=== PATIENT | male | born 1970 | race Caucasian/White ===

== ENCOUNTER → 2024-11-05 08:20 | Outpatient (CLI) | payer BC, SELFPAY | PROVIDERS: PCP Podiatrist; Referring Provider Podiatrist; Visit Provider Surgery | DX: E11.621 Type 2 diabetes mellitus with foot ulcer (principal); L97.522 Non-pressure chronic ulcer of other part of left foot with fat layer exposed; E11.42 Type 2 diabetes mellitus with diabetic polyneuropathy; L84 Corns and callosities; L53.8 Other specified erythematous conditions | CPT/HCPCS: 11042; 87070; 87075; 87205; 99203; 99214 ==

== ENCOUNTER → 2024-11-05 10:11 | Outpatient (CLI) | payer BC, SELFPAY ==
--- NOTE | 2024-11-05 10:15 | DI.RAD.S_ITS ---
PROCEDURE: XR FOOT LT MIN 3V INDICATIONS: Eval for osteo TECHNIQUE: 3 views of the foot were acquired. COMPARISON: None. FINDINGS AND IMPRESSION: No acute displaced fracture or definite radiographic erosions. If there is high concern for further derangement, consider MRI evaluation. Incidentally noted [id number] degenerative changes throughout the forefoot, midfoot, and hindfoot. Moderate plantar calcaneal enthesopathy. Large Steida process. Scattered 5th metatarsal base and navicular enthesopathy also present. Soft tissue swelling is seen. No suspicious soft tissue calcifications. Dictated by: Casper Manuel M.D. on 11/05/2024 at 15:04 Approved by: Casper Manuel M.D. on 11/05/2024 at 15:06
[2024-11-05 10:55] LABS: Hemoglobin A1C% w Est Avg Glu 8.7 % (4.0-6.0)
[2024-11-05 11:04] LABS: Alanine Aminotransferase 27 IU/L (<50); Albumin 4.3 g/dL (3.5-5.0); Albumin Globulin Ratio 1.3 (1.0-2.8); Alkaline Phosphatase 85 U/L (38-126); Aspartate Aminotransferase 26 IU/L (17-59); BUN Creatinine Ratio 19.5 (6-22); Bilirubin Total 0.4 mg/dL (0.2-1.3); Blood Urea Nitrogen 17 mg/dL (9-20); C-Reactive Protein Quant 1.1 mg/dL (<1.0); Calcium 9.2 mg/dL (8.4-10.2); Carbon Dioxide 22 mmol/L (22-32); Chloride 103 mmol/L (98-107); Estimated Glomerular Filt Rate > 60 mL/min (>60); Globulin 3.4 g/dL (1.7-4.1); Glucose 344 mg/dL (70-100); HEMOLYSIS < 15 (0-50); Potassium 4.5 mmol/L (3.4-5.1); Sodium 138 mmol/L (137-145); Total Protein 7.7 g/dL (6.3-8.2)
[2024-11-05 11:32] LABS: Erythrocyte Sedimentation Rate 43 MM/HR (0-15)
== END ==
PROVIDERS: Surgery; PCP Podiatrist; Referring Provider Family Medicine Addiction Medicine; Visit Provider Family Medicine Addiction Medicine
DX: E11.621 Type 2 diabetes mellitus with foot ulcer (principal); L97.522 Non-pressure chronic ulcer of other part of left foot with fat layer exposed; E11.42 Type 2 diabetes mellitus with diabetic polyneuropathy; M79.89 Other specified soft tissue disorders; M77.32 Calcaneal spur, left foot; L84 Corns and callosities; L53.8 Other specified erythematous conditions
CPT/HCPCS: 11042; 36415; 73630; 80053; 83036; 85651; 86140; 87070; 87205; 99214

== ENCOUNTER → 2024-11-12 11:38 | Outpatient (CLI) | payer BC, SELFPAY | PROVIDERS: PCP Podiatrist; Referring Provider Podiatrist; Visit Provider Surgery | DX: E11.621 Type 2 diabetes mellitus with foot ulcer (principal); L97.522 Non-pressure chronic ulcer of other part of left foot with fat layer exposed; L97.512 Non-pressure chronic ulcer of other part of right foot with fat layer exposed; E11.42 Type 2 diabetes mellitus with diabetic polyneuropathy; L84 Corns and callosities; L53.8 Other specified erythematous conditions; R23.4 Changes in skin texture | CPT/HCPCS: 11042 ==

== ENCOUNTER → 2024-11-14 15:41 | Outpatient (CLI) | payer BC, SELFPAY | PROVIDERS: PCP Podiatrist; Referring Provider Podiatrist; Visit Provider Surgery | DX: E11.621 Type 2 diabetes mellitus with foot ulcer (principal); L97.522 Non-pressure chronic ulcer of other part of left foot with fat layer exposed; L97.512 Non-pressure chronic ulcer of other part of right foot with fat layer exposed; L84 Corns and callosities; L53.8 Other specified erythematous conditions; R23.4 Changes in skin texture | CPT/HCPCS: 99213 ==

== ENCOUNTER → 2024-11-19 11:13 | Outpatient (CLI) | payer BC, SELFPAY | PROVIDERS: PCP Podiatrist; Referring Provider Podiatrist; Visit Provider Surgery | DX: E11.621 Type 2 diabetes mellitus with foot ulcer (principal); L97.522 Non-pressure chronic ulcer of other part of left foot with fat layer exposed; L97.512 Non-pressure chronic ulcer of other part of right foot with fat layer exposed; E11.40 Type 2 diabetes mellitus with diabetic neuropathy, unspecified; L84 Corns and callosities; R23.4 Changes in skin texture | CPT/HCPCS: 11042 ==

== ENCOUNTER → 2024-11-19 11:54 | Outpatient (CLI) | payer BC, SELFPAY ==
--- NOTE | 2024-11-19 11:55 | DI.RAD.S_ITS ---
PROCEDURE: XR TOE RT MIN 2V INDICATIONS: non-healing ulcer right second toe TECHNIQUE: Three views of the right 2nd toe) acquired. COMPARISON: None. FINDINGS: Bones: Malunified old fracture of the plantar base of the 1st distal phalanx results in deformity and excrescence projecting into the soft tissues. There is no specific radiographic evidence for osteomyelitis. Hammertoe deformity in the 2nd 3rd and 4th digits appreciated. Joints: Moderate degeneration 1st MTP and mild degeneration in the 2nd through 5th interphalangeal joints Soft tissues: Marked soft tissue swelling present in the forefoot IMPRESSION: No plain film evidence of osteomyelitis. Other chronic findings -as described Dictated by: Kota Stafford M.D. on 11/20/2024 at 9:20 Approved by: Kota Stafford M.D. on 11/20/2024 at 9:23
== END ==
PROVIDERS: PCP Podiatrist; Referring Provider Surgery; Visit Provider Surgery
DX: E11.621 Type 2 diabetes mellitus with foot ulcer (principal); L97.519 Non-pressure chronic ulcer of other part of right foot with unspecified severity; M19.071 Primary osteoarthritis, right ankle and foot; M20.41 Other hammer toe(s) (acquired), right foot; S92.421 Displaced fracture of distal phalanx of right great toe
CPT/HCPCS: 73660

== ENCOUNTER → 2024-11-26 10:35 | Outpatient (CLI) | payer BC, SELFPAY | PROVIDERS: PCP Podiatrist; Referring Provider Podiatrist; Visit Provider Surgery | DX: E11.621 Type 2 diabetes mellitus with foot ulcer (principal); L97.522 Non-pressure chronic ulcer of other part of left foot with fat layer exposed; L97.512 Non-pressure chronic ulcer of other part of right foot with fat layer exposed; E11.40 Type 2 diabetes mellitus with diabetic neuropathy, unspecified; L84 Corns and callosities; R23.4 Changes in skin texture; R60.0 Localized edema | CPT/HCPCS: 11042 ==

== ENCOUNTER → 2024-12-03 13:13 | Outpatient (CLI) | payer BC, SELFPAY | PROVIDERS: PCP Podiatrist; Referring Provider Podiatrist; Visit Provider Surgery | DX: E11.621 Type 2 diabetes mellitus with foot ulcer (principal); L97.522 Non-pressure chronic ulcer of other part of left foot with fat layer exposed; L97.512 Non-pressure chronic ulcer of other part of right foot with fat layer exposed; L84 Corns and callosities; R23.4 Changes in skin texture; E11.40 Type 2 diabetes mellitus with diabetic neuropathy, unspecified; R60.0 Localized edema | CPT/HCPCS: 11042; 99213 ==

== ENCOUNTER → 2024-12-10 14:06 | Outpatient (CLI) | payer BC, SELFPAY | LOC: WC 14:07 | PROVIDERS: PCP Podiatrist; Referring Provider Podiatrist; Visit Provider Surgery | DX: E11.621 Type 2 diabetes mellitus with foot ulcer (principal); L97.522 Non-pressure chronic ulcer of other part of left foot with fat layer exposed; L97.512 Non-pressure chronic ulcer of other part of right foot with fat layer exposed; R23.4 Changes in skin texture; L84 Corns and callosities; E11.40 Type 2 diabetes mellitus with diabetic neuropathy, unspecified | CPT/HCPCS: 11042 ==

== ENCOUNTER → 2024-12-24 14:12 | Outpatient (CLI) | payer BC, SELFPAY | LOC: WC 14:13 | PROVIDERS: PCP Podiatrist; Referring Provider Podiatrist; Visit Provider Surgery | DX: E11.621 Type 2 diabetes mellitus with foot ulcer (principal); L97.522 Non-pressure chronic ulcer of other part of left foot with fat layer exposed; E11.42 Type 2 diabetes mellitus with diabetic polyneuropathy; L84 Corns and callosities; R23.4 Changes in skin texture | CPT/HCPCS: 11042 ==

== ENCOUNTER → 2024-12-31 13:43 | Outpatient (CLI) | payer BC, SELFPAY | LOC: WC 13:44 | PROVIDERS: PCP Podiatrist; Referring Provider Podiatrist; Visit Provider Surgery | DX: E11.621 Type 2 diabetes mellitus with foot ulcer (principal); L97.522 Non-pressure chronic ulcer of other part of left foot with fat layer exposed; E11.42 Type 2 diabetes mellitus with diabetic polyneuropathy; L84 Corns and callosities | CPT/HCPCS: 11042; 99213 ==

== ENCOUNTER → 2025-01-07 15:03 | Outpatient (CLI) | payer BC, SELFPAY | LOC: WC 15:03 | PROVIDERS: PCP Podiatrist; Referring Provider Podiatrist; Visit Provider Surgery | DX: E11.621 Type 2 diabetes mellitus with foot ulcer (principal); L97.522 Non-pressure chronic ulcer of other part of left foot with fat layer exposed; E11.42 Type 2 diabetes mellitus with diabetic polyneuropathy; L84 Corns and callosities | CPT/HCPCS: 11042 ==

== ENCOUNTER → 2025-01-14 15:07 | Outpatient (CLI) | payer BC, SELFPAY | LOC: WC 15:08 | PROVIDERS: PCP Podiatrist; Referring Provider Podiatrist; Visit Provider Surgery | DX: E11.621 Type 2 diabetes mellitus with foot ulcer (principal); E11.42 Type 2 diabetes mellitus with diabetic polyneuropathy; L97.522 Non-pressure chronic ulcer of other part of left foot with fat layer exposed; L84 Corns and callosities; E66.9 Obesity, unspecified; Z68.42 Body mass index [BMI] 45.0-49.9, adult | CPT/HCPCS: 11042 ==

== ENCOUNTER → 2025-01-21 14:08 | Outpatient (CLI) | payer BC, SELFPAY | LOC: WC 14:10 | PROVIDERS: PCP Podiatrist; Referring Provider Podiatrist; Visit Provider Surgery | DX: E11.621 Type 2 diabetes mellitus with foot ulcer (principal); E11.42 Type 2 diabetes mellitus with diabetic polyneuropathy; L97.522 Non-pressure chronic ulcer of other part of left foot with fat layer exposed; L84 Corns and callosities; E66.9 Obesity, unspecified; Z68.42 Body mass index [BMI] 45.0-49.9, adult | CPT/HCPCS: 11042 ==

== ENCOUNTER → 2025-01-28 13:03 | Outpatient (CLI) | payer BC, SELFPAY | PROVIDERS: PCP Podiatrist; Referring Provider Podiatrist; Visit Provider Surgery | DX: E11.621 Type 2 diabetes mellitus with foot ulcer (principal); E11.42 Type 2 diabetes mellitus with diabetic polyneuropathy; L97.522 Non-pressure chronic ulcer of other part of left foot with fat layer exposed; L97.512 Non-pressure chronic ulcer of other part of right foot with fat layer exposed; L84 Corns and callosities; M20.41 Other hammer toe(s) (acquired), right foot; E11.59 Type 2 diabetes mellitus with other circulatory complications; I10 Essential (primary) hypertension; E66.9 Obesity, unspecified; Z68.42 Body mass index [BMI] 45.0-49.9, adult | CPT/HCPCS: 11042; 87070; 87077; 87147; 87205; 99213 ==

== ENCOUNTER → 2025-01-28 13:57 | Outpatient (CLI) | payer BC, SELFPAY ==
--- NOTE | 2025-01-28 13:58 | DI.RAD.S_ITS ---
PROCEDURE: XR FOOT RT MIN 3V INDICATIONS: eval for osteo right 2nd toe TECHNIQUE: 3 views of the foot were acquired. COMPARISON: [facility], CR, XR TOE RT MIN 2V, 11/19/2024, 11:05. [facility], CR, XR FOOT LT MIN 3V, 11/05/2024, 10:12. FINDINGS: Bones: No fractures or dislocations. No suspicious bony lesions. Distal aspect the digits are difficult to evaluate secondary to positioning/hammertoe deformities. However, no gross erosions or significant interval change. Soft tissues: No tibiotalar joint effusion. Achilles tendon appears normal. IMPRESSION: No significant interval change or appearance erosions. Dictated by: Margy Aponte M.D. on 01/28/2025 at 17:28 Approved by: Margy Aponte M.D. on 01/28/2025 at 17:29
== END ==
PROVIDERS: PCP Podiatrist; Referring Provider Surgery; Visit Provider Surgery
DX: E11.621 Type 2 diabetes mellitus with foot ulcer (principal)
CPT/HCPCS: 73630

== ENCOUNTER → 2025-02-05 15:58 | Outpatient (CLI) | payer BC, SELFPAY | LOC: WC 15:59 | PROVIDERS: PCP Podiatrist; Referring Provider Podiatrist; Visit Provider Surgery | DX: E11.621 Type 2 diabetes mellitus with foot ulcer (principal); E11.42 Type 2 diabetes mellitus with diabetic polyneuropathy; L97.522 Non-pressure chronic ulcer of other part of left foot with fat layer exposed; L97.512 Non-pressure chronic ulcer of other part of right foot with fat layer exposed; L84 Corns and callosities; M20.41 Other hammer toe(s) (acquired), right foot; E11.59 Type 2 diabetes mellitus with other circulatory complications; I10 Essential (primary) hypertension | CPT/HCPCS: 11042; 99213 ==

== ENCOUNTER → 2025-02-11 14:20 | Outpatient (CLI) | payer BC, SELFPAY | LOC: WC 14:37 | PROVIDERS: PCP Podiatrist; Referring Provider Podiatrist; Visit Provider Surgery | DX: E11.621 Type 2 diabetes mellitus with foot ulcer (principal); E11.42 Type 2 diabetes mellitus with diabetic polyneuropathy; L97.522 Non-pressure chronic ulcer of other part of left foot with fat layer exposed; L97.512 Non-pressure chronic ulcer of other part of right foot with fat layer exposed; L84 Corns and callosities; M20.41 Other hammer toe(s) (acquired), right foot; E66.9 Obesity, unspecified; Z68.42 Body mass index [BMI] 45.0-49.9, adult | CPT/HCPCS: 11042 ==

== ENCOUNTER → 2025-02-18 15:37 | Outpatient (CLI) | payer BC, SELFPAY | LOC: WC 15:38 | PROVIDERS: PCP Podiatrist; Referring Provider Podiatrist; Visit Provider Surgery | DX: E11.621 Type 2 diabetes mellitus with foot ulcer (principal); E11.42 Type 2 diabetes mellitus with diabetic polyneuropathy; E11.59 Type 2 diabetes mellitus with other circulatory complications; L97.522 Non-pressure chronic ulcer of other part of left foot with fat layer exposed; L97.512 Non-pressure chronic ulcer of other part of right foot with fat layer exposed; L84 Corns and callosities; M20.41 Other hammer toe(s) (acquired), right foot; L98.8 Other specified disorders of the skin and subcutaneous tissue; R60.0 Localized edema | CPT/HCPCS: 11042 ==

== ENCOUNTER → 2025-02-25 13:38 | Outpatient (CLI) | payer BC, SELFPAY | LOC: WC 13:39 | PROVIDERS: PCP Podiatrist; Referring Provider Podiatrist; Visit Provider Surgery | DX: E11.621 Type 2 diabetes mellitus with foot ulcer (principal); E11.42 Type 2 diabetes mellitus with diabetic polyneuropathy; L97.522 Non-pressure chronic ulcer of other part of left foot with fat layer exposed; L97.512 Non-pressure chronic ulcer of other part of right foot with fat layer exposed; L84 Corns and callosities; M20.41 Other hammer toe(s) (acquired), right foot | CPT/HCPCS: 11042 ==

== ENCOUNTER → 2025-03-04 16:14 | Outpatient (CLI) | payer BC, SELFPAY | LOC: WC 16:15 | PROVIDERS: PCP Podiatrist; Referring Provider Podiatrist; Visit Provider Physician Assistant | DX: E11.621 Type 2 diabetes mellitus with foot ulcer (principal); E11.42 Type 2 diabetes mellitus with diabetic polyneuropathy; L97.522 Non-pressure chronic ulcer of other part of left foot with fat layer exposed; L97.512 Non-pressure chronic ulcer of other part of right foot with fat layer exposed; L84 Corns and callosities; M20.41 Other hammer toe(s) (acquired), right foot | CPT/HCPCS: 11042; 99213 ==

== ENCOUNTER → 2025-03-11 15:30 | Outpatient (CLI) | payer BC, SELFPAY | LOC: WC 15:32 | PROVIDERS: PCP Podiatrist; Referring Provider Podiatrist; Visit Provider Surgery | DX: E11.621 Type 2 diabetes mellitus with foot ulcer (principal); E11.42 Type 2 diabetes mellitus with diabetic polyneuropathy; L97.522 Non-pressure chronic ulcer of other part of left foot with fat layer exposed; L97.512 Non-pressure chronic ulcer of other part of right foot with fat layer exposed; L84 Corns and callosities; M20.41 Other hammer toe(s) (acquired), right foot | CPT/HCPCS: 11042; 99213 ==

== ENCOUNTER → 2025-03-20 14:18 | Outpatient (CLI) | payer BC, SELFPAY | LOC: WC 14:18 | PROVIDERS: PCP Podiatrist; Referring Provider Podiatrist; Visit Provider Surgery | DX: E11.621 Type 2 diabetes mellitus with foot ulcer (principal); E11.42 Type 2 diabetes mellitus with diabetic polyneuropathy; L97.522 Non-pressure chronic ulcer of other part of left foot with fat layer exposed; L97.512 Non-pressure chronic ulcer of other part of right foot with fat layer exposed; L84 Corns and callosities; M20.41 Other hammer toe(s) (acquired), right foot | CPT/HCPCS: 11042 ==

== ENCOUNTER → 2025-03-25 15:14 | Outpatient (CLI) | payer BC, SELFPAY | LOC: WC 15:15 | PROVIDERS: PCP Podiatrist; Referring Provider Podiatrist; Visit Provider Surgery | DX: E11.621 Type 2 diabetes mellitus with foot ulcer (principal); E11.42 Type 2 diabetes mellitus with diabetic polyneuropathy; L97.522 Non-pressure chronic ulcer of other part of left foot with fat layer exposed; L97.512 Non-pressure chronic ulcer of other part of right foot with fat layer exposed; L84 Corns and callosities; M20.41 Other hammer toe(s) (acquired), right foot | CPT/HCPCS: 11042 ==

== ENCOUNTER → 2025-03-27 15:16 | Outpatient (CLI) | payer BC, SELFPAY | LOC: WC 15:17 | PROVIDERS: PCP Podiatrist; Referring Provider Podiatrist; Visit Provider Nurse Practitioner Family | DX: E11.621 Type 2 diabetes mellitus with foot ulcer (principal); L97.522 Non-pressure chronic ulcer of other part of left foot with fat layer exposed; L97.512 Non-pressure chronic ulcer of other part of right foot with fat layer exposed; L84 Corns and callosities | CPT/HCPCS: 29445 ==

== ENCOUNTER → 2025-04-01 14:41 | Outpatient (CLI) | payer BC, SELFPAY | LOC: WC 14:42 | PROVIDERS: PCP Podiatrist; Referring Provider Podiatrist; Visit Provider Surgery | DX: E11.621 Type 2 diabetes mellitus with foot ulcer (principal); E11.42 Type 2 diabetes mellitus with diabetic polyneuropathy; L97.522 Non-pressure chronic ulcer of other part of left foot with fat layer exposed; L97.512 Non-pressure chronic ulcer of other part of right foot with fat layer exposed; L84 Corns and callosities; M20.41 Other hammer toe(s) (acquired), right foot | CPT/HCPCS: 11042 ==

== ENCOUNTER → 2025-04-08 15:38 | Outpatient (CLI) | payer BC, SELFPAY | LOC: WC 15:40 | PROVIDERS: PCP Podiatrist; Referring Provider Podiatrist; Visit Provider Surgery | DX: E11.621 Type 2 diabetes mellitus with foot ulcer (principal); L97.512 Non-pressure chronic ulcer of other part of right foot with fat layer exposed; E11.42 Type 2 diabetes mellitus with diabetic polyneuropathy; L84 Corns and callosities; E11.59 Type 2 diabetes mellitus with other circulatory complications; E66.01 Morbid (severe) obesity due to excess calories; Z68.42 Body mass index [BMI] 45.0-49.9, adult; Z79.84 Long term (current) use of oral hypoglycemic drugs; Z86.31 Personal history of diabetic foot ulcer | CPT/HCPCS: 11042; 99213 ==

== ENCOUNTER → 2025-05-06 13:47 | Outpatient (CLI) | payer BC, SELFPAY | LOC: WC 13:48 | PROVIDERS: PCP Podiatrist; Referring Provider Podiatrist; Visit Provider Surgery | DX: E11.628 Type 2 diabetes mellitus with other skin complications (principal); L84 Corns and callosities; E11.42 Type 2 diabetes mellitus with diabetic polyneuropathy; M20.40 Other hammer toe(s) (acquired), unspecified foot; I10 Essential (primary) hypertension; E66.9 Obesity, unspecified; Z68.42 Body mass index [BMI] 45.0-49.9, adult; Z79.84 Long term (current) use of oral hypoglycemic drugs | CPT/HCPCS: 99212; 99213 ==

== ENCOUNTER → 2025-05-14 16:22 | Outpatient (CLI) | payer BC, SELFPAY | LOC: WC 16:23 | PROVIDERS: PCP Nurse Practitioner Family; Referring Provider Nurse Practitioner Family; Visit Provider Surgery | DX: L84 Corns and callosities (principal); E11.628 Type 2 diabetes mellitus with other skin complications; E11.40 Type 2 diabetes mellitus with diabetic neuropathy, unspecified; Z79.84 Long term (current) use of oral hypoglycemic drugs; E66.9 Obesity, unspecified; Z68.42 Body mass index [BMI] 45.0-49.9, adult; I10 Essential (primary) hypertension | CPT/HCPCS: 99211; 99213 ==

== ENCOUNTER → 2025-05-28 13:29 | Outpatient (CLI) | payer BC, SELFPAY | LOC: WC 13:29 | PROVIDERS: PCP Nurse Practitioner Family; Referring Provider Nurse Practitioner Family; Visit Provider Surgery | DX: E11.621 Type 2 diabetes mellitus with foot ulcer (principal); L97.512 Non-pressure chronic ulcer of other part of right foot with fat layer exposed; L84 Corns and callosities; E11.42 Type 2 diabetes mellitus with diabetic polyneuropathy; R60.0 Localized edema | CPT/HCPCS: 11042; 87070; 87075; 87205; 99213 ==

== ENCOUNTER → 2025-05-28 13:46 | Outpatient (CLI) | payer BC, SELFPAY ==
--- NOTE | 2025-05-28 13:47 | DI.RAD.S_ITS ---
PROCEDURE: XR FOOT RT MIN 3V INDICATIONS: Eval for osteo TECHNIQUE: 3 views of the foot were acquired. COMPARISON: [facility], CR, XR FOOT RT MIN 3V, 01/28/2025, 14:00. FINDINGS: Bones: No specific x-ray evidence for osteomyelitis. Mild hallux valgus , mild metatarsus abductus, moderate pes planus and severe hammertoe deformities in the 2nd through 5th digits. 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 Moderate diffuse soft tissue swelling. IMPRESSION: Moderate diffuse soft tissue swelling likely indicating cellulitis. No specific x-ray evidence for osteomyelitis Multiple other chronic findings as described Dictated by: Kota Stafford M.D. on 05/29/2025 at 12:13 Approved by: Kota Stafford M.D. on 05/29/2025 at 12:15
== END ==
PROVIDERS: PCP Nurse Practitioner Family; Referring Provider Nurse Practitioner Family; Visit Provider Surgery
DX: E11.621 Type 2 diabetes mellitus with foot ulcer (principal); M19.071 Primary osteoarthritis, right ankle and foot; M20.11 Hallux valgus (acquired), right foot; M21.6X1 Other acquired deformities of right foot; M21.41 Flat foot [pes planus] (acquired), right foot; M20.41 Other hammer toe(s) (acquired), right foot; M79.89 Other specified soft tissue disorders; M65.871 Other synovitis and tenosynovitis, right ankle and foot; L97.512 Non-pressure chronic ulcer of other part of right foot with fat layer exposed; L84 Corns and callosities; E11.42 Type 2 diabetes mellitus with diabetic polyneuropathy; R60.0 Localized edema
CPT/HCPCS: 11042; 73630; 87070; 87205

== ENCOUNTER → 2025-06-03 14:07 | Outpatient (CLI) | payer BC, SELFPAY | LOC: WC 14:07 | PROVIDERS: PCP Nurse Practitioner Family; Referring Provider Nurse Practitioner Family; Visit Provider Surgery | DX: E11.42 Type 2 diabetes mellitus with diabetic polyneuropathy (principal); L84 Corns and callosities; I10 Essential (primary) hypertension; Z79.85 Long-term (current) use of injectable non-insulin antidiabetic drugs; E66.9 Obesity, unspecified; Z68.42 Body mass index [BMI] 45.0-49.9, adult | CPT/HCPCS: 99213 ==

== ENCOUNTER → 2025-06-17 13:07 | Outpatient (CLI) | payer BC, SELFPAY | LOC: WC 13:07 | PROVIDERS: PCP Nurse Practitioner Family; Referring Provider Nurse Practitioner Family; Visit Provider Surgery | DX: Z86.31 Personal history of diabetic foot ulcer (principal); E11.40 Type 2 diabetes mellitus with diabetic neuropathy, unspecified | CPT/HCPCS: 99212; 99213 ==